=== PATIENT | male | born 1985 | race African-American/Black ===

== ENCOUNTER 2017-08-08 17:48 | Emergency (ER) | payer BC, OTHER ==
[2017-08-08 17:57] VITALS: BP 137/73; PULSE 63; RESP 18; TEMP 97.7
--- NOTE | 2017-08-08 19:01 | ED ---
Wound/Laceration HPI - General Chief Complaint: Wound/Laceration Stated Complaint: Finger laceration Time Seen by Provider: 08/08/17 17:58 Source: patient, RN notes reviewed, old records reviewed Mode of arrival: ambulatory Limitations: no limitations - History of Present Illness Initial Comments: This patient's a 32-year-old male presents emergency Department chief complaint of an laceration of the left index finger. Patient reports that he cut it on a knife. Patient has full range of motion of the finger. He states it is bleeding heavily. He reports no numbness or tingling of the finger. Eyes any other symptoms. His tetanus is up-to-date. - Related Data Previous Rx's Medication Instructions Recorded Cyclobenzaprine [Flexeril] 10 mg PO TID PRN #15 tab 11/09/15 Allergies Allergy/AdvReac Type Severity Reaction Status Date / Time No Known Allergies Allergy Verified 08/08/17 17:57 Review of Systems ROS Statement: Those systems with pertinent positive or pertinent negative responses have been documented in the HPI. ROS Other: All systems not noted in ROS Statement are negative. Past Medical History Additional Past Medical History / Comment(s): chi,liver laceration History of Any Multi-Drug Resistant Organisms: None Reported Additional Past Surgical History / Comment(s): facial surgery Past Psychological History: No Psychological Hx Reported Smoking Status: Never smoker Past Alcohol Use History: Rare Past Drug Use History: None Reported General Exam - General Exam Comments Initial Comments: 32-year-old male. Alert and oriented. No distress. Patient does appear anxious. Limitations: no limitations General appearance: alert, in no apparent distress Head exam: Present: atraumatic, normocephalic, normal inspection Eye exam: Present: normal appearance, PERRL, EOMI. Absent: scleral icterus, conjunctival injection, periorbital swelling ENT exam: Present: normal exam, mucous membranes moist Neck exam: Present: normal inspection. Absent: tenderness, meningismus, lymphadenopathy Respiratory exam: Present: normal lung sounds bilaterally. Absent: respiratory distress, wheezes, rales, rhonchi, stridor Cardiovascular Exam: Present: regular rate, normal rhythm, normal heart sounds. Absent: systolic murmur, diastolic murmur, rubs, gallop, clicks Extremities exam: Present: normal inspection, full ROM, normal capillary refill , other (3 cm flap laceration over the left index finger. Full range of motion noted. Normal sensation. Normal capillary refill.). Absent: tenderness, pedal edema, joint swelling, calf tenderness Left Elbow exam: Present: normal inspection, full ROM Forearm Wrist exam: Present: normal inspection, full ROM Hand Wrist exam: Present: full ROM, laceration (3 cm laceration of the left index finger.). Absent: normal inspection Back exam: Present: normal inspection Neurological exam: Present: alert, oriented X3, CN II-XII intact Course Vital Signs 08/08/17 17:52 Temperature 97.7 F Pulse Rate 63 Respiratory 18 Rate Blood Pressure 137/73 O2 Sat by Pulse 97 Oximetry Procedures - Laceration Laceration #1 Indication: laceration Site: hand (Left index finger) Size (cm): 3 Description: flap Depth: simple, single layer Anesthetic Used: lidocaine 1% Anesthesia Technique: local infiltration Amount (mls): 2 Pre-repair: wound explored, irrigated extensively Size of Sutures: 6-0 Number of Sutures: 9 Technique: simple, interrupted Patient Tolerated Procedure: well, no complications Medical Decision Making - Medical Decision Making 32-year-old male with a history of left index finger laceration. Patient cut it on a knife. Laceration was well approximated with 9 sutures, irrigated. His tetanus is up-to-date. Full range of motion noted. He did cut it on a knife, no concern for foreign body. Patient bleeding was controlled. Discussed monitoring for any infection. Patient understands suture instructions AND answered. Disposition Clinical Impression: Laceration of left index finger Disposition: HOME SELF-CARE Condition: Good Instructions: Care For Your Stitches (ED), Finger Laceration (ED) Additional Instructions: Please return to the emergency room in 8-10 days to have sutures removed. Please leave wound covered for the first 24-48 hours and then leave open to air after that time. Please use clean soap and water to clean the suture area to prevent scabbing over the top of your sutures. Please watch for any signs of infection which may include but not limited to increased pain, swelling, redness , fever or chills. Please return to the emergency room if any signs of infection do occur. Please return to the emergency room for any other concerns or complications. Is patient prescribed a controlled substance at d/c from ED?: No If prescribed controlled substance>3 days was MAPS reviewed?: No When asked, does pt state using other controlled substances?: No Referrals: None,Stated [Primary Care Provider] - 1-2 days Time of Disposition: 19:00
== END 2017-08-08 19:07 | disposition home or self-care (01) ==
LOC: EC 17:48
DX: S61.211A Laceration without foreign body of left index finger without damage to nail, initial encounter (principal); W26.0XXA Contact with knife, initial encounter
CPT/HCPCS: 12002; 99283

== ENCOUNTER 2017-08-17 13:31 | Emergency (ER) | payer OTHER ==
--- NOTE | 2017-08-17 14:36 | ED ---
General Adult HPI - General Chief complaint: Back Pain/Injury Stated complaint: Back pain Time Seen by Provider: 08/17/17 14:05 Source: patient, RN notes reviewed Mode of arrival: ambulatory Limitations: no limitations - History of Present Illness Initial comments: 32-year-old male presents to the emergency department for a chief complaint of low back pain 2 days. 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 Patient states his low back has been "tight" ever since. Patient took a Motrin today which helped him feel significantly better. Patient denies any bladder or bowel changes, saddle anesthesia, shooting pain or numbness in the lower extremities, or history of IV drug abuse. Patient denies any other injuries to his back. Patient denies falling or hitting his head. Patient has no other complaints at this time including shortness of breath, chest pain, abdominal pain, nausea or vomiting, headache, or visual changes. - Related Data Previous Rx's Medication Instructions Recorded Cyclobenzaprine [Flexeril] 10 mg PO TID PRN #15 tab 11/09/15 Cyclobenzaprine [Flexeril] 5 mg PO TID #9 tablet 08/17/17 Ibuprofen [Motrin] 600 mg PO Q8HR PRN #20 tab 08/17/17 Allergies Allergy/AdvReac Type Severity Reaction Status Date / Time No Known Allergies Allergy Verified 08/17/17 13:40 Review of Systems ROS Statement: Those systems with pertinent positive or pertinent negative responses have been documented in the HPI. ROS Other: All systems not noted in ROS Statement are negative. Past Medical History Additional Past Medical History / Comment(s): chi,liver laceration History of Any Multi-Drug Resistant Organisms: None Reported Additional Past Surgical History / Comment(s): facial surgery Past Psychological History: No Psychological Hx Reported Smoking Status: Never smoker Past Alcohol Use History: Rare Past Drug Use History: None Reported General Exam Limitations: no limitations General appearance: alert, in no apparent distress Neck exam: Present: normal inspection. Absent: tenderness, meningismus, lymphadenopathy Respiratory exam: Present: normal lung sounds bilaterally. Absent: respiratory distress, wheezes, rales, rhonchi, stridor Cardiovascular Exam: Present: regular rate, normal rhythm, normal heart sounds. Absent: systolic murmur, diastolic murmur, rubs, gallop, clicks Extremities exam: Present: full ROM (Full range of motion of bilateral hips and knees ankles and feet. Patient is able to wiggle toes.), normal capillary refill (Refill less than 2 seconds and PT and PT pulses 2+ in lower extremities bilaterally), other (Full sensation intact in the lower extremities bilaterally including the distal feet.) Back exam: Present: tenderness (No cervical or thoracic spine tenderness. Patient does have mild lumbar spine tenderness.), other (Positive straight leg raise test on the right lower extremity. Negative on the left.). Absent: full ROM (Patient has 90 of flexion of the lumbar spine. He states he usually can touch his toes but can't today. Patient has 30 extension. Patient has full twisting and lateral bending motions.), paraspinal tenderness Course Vital Signs 08/17/17 13:35 Temperature 97.7 F Pulse Rate 69 Respiratory 18 Rate Blood Pressure 132/82 O2 Sat by Pulse 99 Oximetry Medical Decision Making - Medical Decision Making 32-year-old male presents to the emergency department for a chief complaint of low back pain 2 days. Patient was working out yesterday when he hurt his back. Patient denies any shooting pains on the legs or tingling in the lower extremities. Patient denies saddle anesthesia, bladder or bowel changes, history of IV drug use. On exam patient has 90 flexion and full extension of the lumbar spine. Patient is able to twist and bend without difficulty. Patient is very active and showing me boxing moves in the exam room. Neurovascular intact in the lower 70s bilaterally. There is mild lumbar spine tenderness. X-ray was ordered which demonstrated no acute fracture or abnormality. Patient will be given Flexeril and Motrin. He will follow up with primary care in 1-2 days. A referral was given for him. If symptoms worsen he will return to the emergency department. The symptoms were discussed with him. Disposition Clinical Impression: Mechanical back pain Disposition: HOME SELF-CARE Condition: Good Instructions: Acute Low Back Pain (ED) Additional Instructions: Please take Motrin and Flexeril as directed. Do not drive or operate machinery when taking Flexeril. Please return to the emergency department if you have any worsening symptoms including bladder or bowel changes or numbness in the buttock or groin or lower extremities. Otherwise, follow up with primary care in 1-2 days. Prescriptions: Cyclobenzaprine [Flexeril] 5 mg PO TID #9 tablet Ibuprofen [Motrin] 600 mg PO Q8HR PRN #20 tab PRN Reason: Pain Is patient prescribed a controlled substance at d/c from ED?: No Referrals: Arslan Lima MD [STAFF PHYSICIAN] - 1-2 days Time of Disposition: 14:58
--- NOTE | 2017-08-17 14:44 | XR ---
EXAMINATION TYPE: XR lumbar spine 2 or 3V DATE OF EXAM: 08/17/2017 COMPARISON: NONE HISTORY: Pain low back pain TECHNIQUE: Three-view lumbar spine FINDINGS: There 5 lumbar-type vertebral bodies. Pedicles are intact. Disc heights are preserved. Vert ebral body heights are preserved. IMPRESSION: 1. Normal lumbar spine
[2017-08-17 15:10] VITALS: BP 118/78; PULSE 64; RESP 20; TEMP 97
== END 2017-08-17 15:10 | disposition home or self-care (01) ==
LOC: EC 13:31
DX: M54.5 Low back pain (principal); X50.1XXA Overexertion from prolonged static or awkward postures, initial encounter; Y93.89 Activity, other specified
CPT/HCPCS: 72100; 99283

== ENCOUNTER 2017-08-31 19:46 | Emergency (ER) | payer OTHER ==
[2017-08-31 19:51] VITALS: BP 153/89; PULSE 58; RESP 18; TEMP 97.3
--- NOTE | 2017-08-31 20:44 | XR ---
EXAMINATION TYPE: XR foot complete LT DATE OF EXAM: 08/31/2017 COMPARISON: NONE HISTORY: Pain first metatarsal, stepped on nail TECHNIQUE: Three-view left foot FINDINGS: No acute fractures are evident. No radiopaque foreign bodies are evident. Soft tissues appe ar normal. IMPRESSION: 1. No acute osseous abnormality left foot
--- NOTE | 2017-08-31 21:02 | ED ---
Lower Extremity Injury HPI - General Chief Complaint: Extremity Injury, Lower Stated Complaint: Foot Injury/Step on nail Time Seen by Provider: 08/31/17 20:05 Source: patient, RN notes reviewed, old records reviewed Mode of arrival: ambulatory Limitations: no limitations - History of Present Illness Initial Comments: Patient is a 32 year old male with CC of left foot pain after stepping on a nail one week ago. He states no foot swelling nad no drainage. Patient has no has had no up dated tetanus shot. - Related Data Previous Rx's Medication Instructions Recorded Ciprofloxacin HCl [Cipro] 500 mg PO Q12HR 7 Days tab 08/31/17 Allergies Allergy/AdvReac Type Severity Reaction Status Date / Time No Known Allergies Allergy Verified 08/31/17 20:01 Review of Systems ROS Statement: Those systems with pertinent positive or pertinent negative responses have been documented in the HPI. ROS Other: All systems not noted in ROS Statement are negative. Past Medical History Additional Past Medical History / Comment(s): chi,liver laceration History of Any Multi-Drug Resistant Organisms: None Reported Additional Past Surgical History / Comment(s): facial surgery Past Psychological History: No Psychological Hx Reported Smoking Status: Never smoker Past Alcohol Use History: Rare Past Drug Use History: None Reported General Exam - General Exam Comments Initial Comments: Well appearing 32 year old male, no distress. Limitations: no limitations General appearance: alert, in no apparent distress Head exam: Present: atraumatic, normocephalic, normal inspection Eye exam: Present: normal appearance, PERRL, EOMI. Absent: scleral icterus, conjunctival injection, periorbital swelling ENT exam: Present: normal exam, mucous membranes moist Neck exam: Present: normal inspection. Absent: tenderness, meningismus, lymphadenopathy GI/Abdominal exam: Present: soft, normal bowel sounds. Absent: distended, tenderness, guarding, rebound, rigid Extremities exam: Present: normal inspection, full ROM, normal capillary refill , other (small healed puncture wound of left foot. ). Absent: tenderness, pedal edema, joint swelling, calf tenderness Back exam: Present: normal inspection Neurological exam: Present: alert, oriented X3, CN II-XII intact Psychiatric exam: Present: normal affect, normal mood Skin exam: Present: warm, dry, intact, normal color. Absent: rash Course Vital Signs 08/31/17 19:48 Temperature 97.3 F L Pulse Rate 58 L Respiratory 18 Rate Blood Pressure 153/89 O2 Sat by Pulse 100 Oximetry Medical Decision Making - Medical Decision Making Patient is a 32 year old male with left foot puncture wound of nail one week ago. At this time he has no significant swelling and has full ROM. His xray was reveiwed and normal. No acute process noted. At this time as wound is healed , we will not reopen, but advised epson salt soaks and will place patient on prophylatic antibiotics. Discussed follow up with PCP. REturn parameters discussed. Disposition Clinical Impression: Puncture wound of skin from metal nail Disposition: HOME SELF-CARE Condition: Good Additional Instructions: Patient denies to do warm Epsom salt soaks of the foot frequently. Take antibiotics as prescribed. Return to the emergency department if any alarming signs or symptoms occur. Prescriptions: Ciprofloxacin HCl [Cipro] 500 mg PO Q12HR 7 Days tab Is patient prescribed a controlled substance at d/c from ED?: No When asked, does pt state using other controlled substances?: No If prescribed controlled substance>3 days was MAPS reviewed?: No If opioid is for acute pain is fill amount 7 days or less?: No If Rx opioid, was Start Talking consent form obtained?: No Referrals: None,Stated [Primary Care Provider] - 1-2 days Diana Gutierrez MD [STAFF PHYSICIAN] - 1-2 days Time of Disposition: 21:01
== END 2017-08-31 21:15 | disposition home or self-care (01) ==
LOC: EC 19:46
DX: S91.332A Puncture wound without foreign body, left foot, initial encounter (principal); W45.0XXA Nail entering through skin, initial encounter
CPT/HCPCS: 99284